=== PATIENT | female | born 1990 | race Hispanic/Latino ===

== ENCOUNTER 2021-12-03 02:27 | Emergency (ER) | payer MEDICAID, OTHER ==
[~2021-12-03] VITALS: Ht 162.6 cm; Wt 71.2 kg
[2021-12-03] MEDS ORDERED: ONDANSETRON 4MG INJ IVP ONE (03:30)
[2021-12-03] MEDS ORDERED: 0.9%NACL 1000ML 1,000 ML IV ONE ×2 (03:30→03:41)
[2021-12-03] MEDS ORDERED: METOCLOPRAMIDE 10 MG/2 ML VIAL IVP ONE (03:30)
[2021-12-03] MEDS ORDERED: METOCLOPRAMIDE 10 MG/2 ML VIAL ONE (03:40)
[2021-12-03] MEDS ORDERED: ONDANSETRON 4MG INJ ONE (03:40)
[2021-12-03] MEDS ORDERED: METO-296 PO (04:47)
[2021-12-03] MEDS ORDERED: ONDA4TAB10 PO (04:47)
[2021-12-03 04:52] VITALS: BP 110/60
== END 2021-12-03 05:15 | disposition home or self-care (01) ==
LOC: EDH 02:27
DX: F10.129 Alcohol abuse with intoxication, unspecified (principal); E86.9 Volume depletion, unspecified; R11.10 Vomiting, unspecified
CPT/HCPCS: 96361; 96374; 96375; 99284; J2405; J2765; J7030